=== PATIENT | male | born 1975 | race Caucasian/White ===

== ENCOUNTER 2022-02-02 05:37 | Observation (INO) ==
[2022-02-02] MEDS ORDERED: Iopamidol - 370 500 ML MLS IVP ONE (07:20)
[2022-02-02 08:19] LABS: Basophils # 0.1 K/mcL (0.0-0.2); Basophils % 0.5 %; Eosinophils # 0.1 K/mcL (0.0-0.6); Eosinophils % 0.5 %; Hematocrit 37.6 % (37.5-50.1); Hemoglobin 12.8 g/dL (12.9-16.9); Immature Granulocytes % 0.3 % (0-4); Lymphocytes # 2.3 K/mcL (0.6-4.6); Lymphocytes % 20.7 %; Mean Corpuscular Hemoglobin 30.8 pg (28.0-33.3); Mean Corpuscular Volume 90.6 fL (83.0-100.0); Mean Platelet Volume 10.6 fL (9.4-12.4); Monocytes # 0.9 K/mcL (0.0-1.3); Monocytes % 7.8 %; Neutrophils # 7.8 K/mcL (1.6-8.9); Platelet Count 228 K/mcL (140-400); Red Blood Count 4.15 M/mcL (4.19-5.50); Red Cell Distribution Width 12.8 % (11.5-14.5); Segmented Neutrophils % 70.2 %; White Blood Count 11.1 K/mcL (4.3-11.1)
[2022-02-02 08:28] LABS: BUN/Creatinine Ratio 24 (6-26); Blood Urea Nitrogen 18 mg/dL (6-20); Calcium 8.9 mg/dL (8.6-10.3); Carbon Dioxide 25 mEq/L (23-29); Chloride 107 mEq/L (98-107); Glucose 96 mg/dL (70-105); Osmolality,Calculated 286 (280-300); Potassium 3.8 mEq/L (3.5-5.1); Sodium 137 mEq/L (136-145)
[2022-02-02] MEDS ORDERED: Ondansetron 4 MG/2 ML VIAL IVP PRN ×2 (09:15→18:50)
[2022-02-02] MEDS ORDERED: Melatonin 3 MG TABLET PO PRN ×2 (09:15→18:50)
[2022-02-02] MEDS ORDERED: Naloxone 0.4 MG/ML INJ IVP PRN ×2 (09:15→18:50)
[2022-02-02] MEDS ORDERED: 0.9 % Sodium Chloride 1,000 ML IVC SCH (09:15)
[2022-02-02] MEDS ORDERED: Valsartan 80 MG TABLET PO SCH (10:00)
[2022-02-02 11:37] LABS: Hematocrit 29.9 % (37.5-50.1)
[2022-02-02 11:45] LABS: Hemoglobin 10.1 g/dL (12.9-16.9)
[2022-02-02] MEDS ORDERED: Lidocaine -MPF 2% 2 ML VIAL ONE (15:43)
[2022-02-02] MEDS ORDERED: *HR* Propofol 200 MG/20 ML VIAL IVP ONE (16:24)
[2022-02-02 18:33] LABS: Hematocrit 34.6 % (37.5-50.1); Hemoglobin 11.4 g/dL (12.9-16.9)
[2022-02-03 03:01] LABS: Basophils % 0.4 %; Eosinophils # 0.1 K/mcL (0.0-0.6); Eosinophils % 0.8 %; Hematocrit 31.8 % (37.5-50.1); Hemoglobin 10.6 g/dL (12.9-16.9); Immature Granulocytes % 0.3 % (0-4); Lymphocytes # 2.4 K/mcL (0.6-4.6); Lymphocytes % 30.9 %; Mean Corpuscular HGB Conc 33.3 g/dL (31.6-35.5); Mean Corpuscular Hemoglobin 30.5 pg (28.0-33.3); Mean Corpuscular Volume 91.6 fL (83.0-100.0); Mean Platelet Volume 10.9 fL (9.4-12.4); Monocytes # 0.8 K/mcL (0.0-1.3); Neutrophils # 4.5 K/mcL (1.6-8.9); Platelet Count 203 K/mcL (140-400); Red Blood Count 3.47 M/mcL (4.19-5.50); Red Cell Distribution Width 12.8 % (11.5-14.5); Segmented Neutrophils % 57.6 %; White Blood Count 7.8 K/mcL (4.3-11.1)
[2022-02-03 03:22] LABS: BUN/Creatinine Ratio 17 (6-26); Blood Urea Nitrogen 12 mg/dL (6-20); Calcium 8.5 mg/dL (8.6-10.3); Carbon Dioxide 24 mEq/L (23-29); Chloride 109 mEq/L (98-107); Chol/HDL Ratio 5.5 (0-4.9); Cholesterol 137 mg/dL (< 200); Glucose 107 mg/dL (70-105); HDL Cholesterol 25 mg/dL (40-59); LDL Cholesterol,Calculated 82 mg/dL (< 100); Magnesium 1.9 mg/dL (1.6-2.6); Osmolality,Calculated 292 (280-300); Potassium 3.3 mEq/L (3.5-5.1); Sodium 141 mEq/L (136-145); Triglycerides 150 mg/dL (< 150)
[2022-02-03 07:17] LABS: Hematocrit 30.8 % (37.5-50.1); Hemoglobin 10.3 g/dL (12.9-16.9)
[2022-02-03] MEDS ORDERED: Potassium Chloride Elixir 20 MEQ/15 ML UDC PO ONE (07:19)
[2022-02-03] MEDS: Valsartan 80 MG TABLET PO SCH (08:13)
[2022-02-03 09:20] LABS: Hematocrit 32.6 % (37.5-50.1)
[2022-02-04 02:11] LABS: Basophils # 0.1 K/mcL (0.0-0.2); Basophils % 0.6 %; Eosinophils # 0.1 K/mcL (0.0-0.6); Eosinophils % 1.5 %; Hematocrit 30.3 % (37.5-50.1); Hemoglobin 10.1 g/dL (12.9-16.9); Immature Granulocytes % 0.3 % (0-4); Lymphocytes # 2.8 K/mcL (0.6-4.6); Lymphocytes % 36.1 %; Mean Corpuscular HGB Conc 33.3 g/dL (31.6-35.5); Mean Corpuscular Hemoglobin 30.2 pg (28.0-33.3); Mean Corpuscular Volume 90.7 fL (83.0-100.0); Mean Platelet Volume 10.9 fL (9.4-12.4); Monocytes # 0.8 K/mcL (0.0-1.3); Monocytes % 9.9 %; Neutrophils # 4.1 K/mcL (1.6-8.9); Platelet Count 198 K/mcL (140-400); Red Blood Count 3.34 M/mcL (4.19-5.50); Red Cell Distribution Width 12.6 % (11.5-14.5); Segmented Neutrophils % 51.6 %; White Blood Count 7.9 K/mcL (4.3-11.1)
[2022-02-04 02:29] LABS: BUN/Creatinine Ratio 11 (6-26); Blood Urea Nitrogen 8 mg/dL (6-20); Calcium 8.9 mg/dL (8.6-10.3); Carbon Dioxide 26 mEq/L (23-29); Chloride 106 mEq/L (98-107); Glucose 106 mg/dL (70-105); Osmolality,Calculated 287 (280-300); Potassium 3.4 mEq/L (3.5-5.1); Sodium 139 mEq/L (136-145)
[2022-02-04] MEDS ORDERED: Potassium Chloride Elixir 20 MEQ/15 ML UDC PO ONE (07:32)
[2022-02-04] MEDS: Valsartan 80 MG TABLET PO SCH (08:00)
[2022-02-04 08:10] VITALS: BP 139/86; PULSE 68; TEMP 97.9; O2SAT 95
== END 2022-02-04 11:58 | disposition home or self-care (01) ==
LOC: EMEROOARM 05:37 → 2ANU 05:37
PROVIDERS: ADMIT Hospitalist; ATTEND Hospitalist